=== PATIENT | female | born 1960 | race Two or more races ===

== ENCOUNTER 2021-12-31 16:40 | Observation (INO) | payer SELFPAY ==
[2021-12-31 16:46] VITALS: BP 187/109; PULSE 96; RESP 19; TEMP 36.8; O2SAT 93; BMI 26.5
--- NOTE | 2021-12-31 16:50 | CTR_ITS ---
PROCEDURE INFORMATION: Exam: CT Head Without Contrast Exam date and time: 12/31/2021 5:29 PM Age: 61 years old Clinical indication: Altered mental status/memory loss and speech disturbance; Dysphasia; Additional info: Difficu; Ty speaking elevated BP TECHNIQUE: Imaging protocol: Computed tomography of the head without contrast. Radiation optimization: All CT scans at this facility use at least one of these dose optimization techniques: automated exposure control; mA and/or kV adjustment per patient size (includes targeted exams where dose is matched to clinical indication); or iterative reconstruction. COMPARISON: No relevant prior studies available. 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 Mild atrophy and mild white matter chronic microvascular changes are noted. No hemorrhage or evidence of acute infarction. Cerebral ventricles: No ventriculomegaly. Paranasal sinuses: Visualized sinuses are unremarkable. No fluid levels. Mastoid air cells: Visualized mastoid air cells are well aerated. Bones/joints: Unremarkable. No acute fracture. Soft tissues: Unremarkable. CT/CT head wo con* [id number] IMPRESSION: No acute intracranial abnormality.
--- NOTE | 2021-12-31 16:50 | ECG_ITS ---
[facility] Test Date: 2021-12-31 Pat Name: Shannon Lara Department: Room: Gender: Female Personnel Technician: : 1960 Requested By: Colby Silveira Order Number: [id number] Ivan MD: Kortney Hunter M.D. Measurements Intervals [place] Rate: 94 P: 90 LA: 186 QRS: 38 QRSD: 85 T: 7 QT: 347 QTc: 435 Interpretive Statements SINUS RHYTHM ST DEVIATION AND MODERATE T-WAVE ABNORMALITY, CONSIDER INFERIOR ISCHEMIA [-0.1+ mV T-WAVE IN II/aVF] No previous ECG available for comparison Electronically Signed On 12-31-2021 18:56:58 CDT by Kortney Hunter M.D. [id number]
--- NOTE | 2021-12-31 16:50 | W.ED.GENADLT ---
Documented by User: Colby Ornelas DO 01/01/22 07:24 HPI - General Adult General: Chief complaint: Neuro Symptoms/Deficit Stated complaint: problem speaking, dizziness Time Seen by Provider: 12/31/21 16:45 Source: patient Mode of arrival: ambulatory Limitations: no limitations History of Present Illness: 61-year-old female presents emergency room stating she feels like she is dizzy and her speech is different. Patient is hypertensive. She is extremely anxious. She denies chest pain or abdominal pain denies dysuria urgency or frequency. No chest pain. Patient's blood pressure has been elevated at home and is remained slightly elevated here. She denies abdominal pain. No vision changes no hearing changes no difficulty with gait or balance. Beyond this patient is not able to really vocalize specific complaint other than she just does not feel right. Onset (ago): day(s) Severity: mild Associated symptoms: Reports malaise; Deny chest pain, confusion, cough, diaphoresis, decreased appetite, dyspnea, fevers/chills, headache(s), nausea, rash, palpitations, seizures, short of breath, syncope, vomiting or weakness Treatments prior to arrival: none Review of Systems Const: Reports: malaise; Denies: fever(s), chills, body aches, change in appetite or diaphoresis Eyes: Denies: change in vision or blurry vision ENMT: Denies: throat pain, ear or mastoid pain, nasal discharge or nasal congestion Card: Denies: chest pain, palpitations or syncope Resp: Denies: dyspnea GI: Reports: abdominal pain; Denies: nausea or vomiting : Denies: flank pain, difficulty voiding, dysuria, urinary frequency or urinary urgency Musc: Denies: neck pain or back pain Skin/Breast: Denies: rash Neuro: Denies: headache(s), numbness in extremities, weakness in extremities, sensory changes, difficulty walking, frequent falls, dizziness, confusion or seizure-like activity Psych: Reports: anxiety Endo: Denies: polyuria or polydipsia Lei/Lymph: Denies: easy bruising or easy bleeding [facility] PFSH: Medical History Breast cancer CHF (congestive heart failure) Reduced ejection fraction concurrent with and due to acute heart failure Surgical History Hx of mastectomy Family History Other Cancer Social History Smoking and tobacco status: current every day smoker cigarettes Packs smoked per day: 1 Number of cigarettes per day: >20 Alcohol intake: current Alcohol intake frequency: 3 or more drinks per day Alcohol type: beer Household members: family Physical Exam Const: COMMON NORMALS: no acute distress GENERAL APPEARANCE: cooperative and comfortable ORIENTATION/CONSCIOUSNESS: Yes awake, Yes oriented to person, Yes oriented to place and Yes oriented to time HENMT: COMMON NORMALS: normocephalic, atraumatic, hearing grossly normal bilaterally, external ears normal, EAC's normal and TM's normal bilaterally HEAD & SCALP: normocephalic and atraumatic EXTERNAL EAR: Yes external ears normal EXTERNAL AUDITORY CANAL: EAC's normal TYMPANIC MEMBRANE: TM's normal bilaterally Eye: COMMON NORMALS: Equal, round and reactive pupils present, EOMs intact bilaterally, conjunctivae normal and no scleral icterus CONJUNCTIVA: Yes conjunctivae normal PUPIL: Yes Equal, round and reactive pupils present Neck/C-Spine: COMMON NORMALS: full ROM, no lymphadenopathy, supple and no JVD Resp: COMMON NORMALS: normal respiratory effort, No retractions, No use of accessory muscles and clear to auscultation bilaterally AUSCULTATION: clear to auscultation bilaterally Cardio: COMMON NORMALS: no JVD, regular rate, regular rhythm and No murmurs present (Cardio) RATE: regular rate RHYTHM: regular rhythm GI: COMMON NORMALS: Soft to palpation and No hepatosplenomegaly present AUSCULTATION: Yes normoactive bowel sounds PALPATION: Yes Soft to palpation, No Tenderness to palpation present (GI), No Guarding due to palpation present (GI) and Yes No hepatosplenomegaly present Extremity: COMMON NORMALS: normal to inspection, capillary refill normal, no clubbing, cyanosis or edema, no calf tenderness and no pedal edema Neuro: SENSORIUM/ORIENTATION: Yes oriented to person, Yes oriented to place and Yes oriented to time Skin: COMMON NORMALS: no rashes or lesions noted GENERAL SKIN EXAM: no rashes or lesions noted Course Vital Signs: Vital signs: Vital Signs Temperature 97.5 F L 01/01/22 03:02 Pulse Rate 72 01/01/22 03:02 Respiratory Rate 16 01/01/22 03:02 Blood Pressure 158/85 01/01/22 03:02 Pulse Oximetry 92 01/01/22 03:02 MDM - General Adult Medical Decision Making NIH score is 0. Labs are pending. Care signed out to Dr. Engel at change of shift. See final notes for diagnosis and disposition. Patient presents here with some confusion and weakness and dizziness has been going on for over a day CT showed no signs of stroke here she has been slightly lethargic this could be anxiety related as well as she had a lot of anxiety with a recent family and is here on a will admit for observation at this time. Lab Data : 01/01/22 01:45 01/01/22 01:[address] 12/31/21 16:50 IMPRESSION: No acute intracranial abnormality. Chest X-Ray 12/31/21 19:57 IMPRESSION: 1. No acute findings. 2. 2 right upper lobe adjacent pulmonary nodules measuring up to 8.5 mm. Dedicated nonemergent chest CT advised for further evaluation Laboratory Results WBC 6.2 10^3/uL (4.0-10.0) 12/31/21 17:05 RBC 4.35 10^6/uL (4.1-5.3) 12/31/21 17:05 Hgb 14.6 g/dL (11.5-15.3) 12/31/21 17:05 Hct 44.1 % (37.0-47.0) 12/31/21 17:05 MCV 101.4 fl (81-99) H 12/31/21 17:05 MCH 33.6 pg (28.0-34.0) 12/31/21 17:05 MCHC 33.1 g/dL (30.0-36.0) 12/31/21 17:05 RDW 14.3 % (12.1-15.1) 12/31/21 17:05 Plt Count 228 10^3/cmm (130-400) 12/31/21 17:05 MPV 8.5 fL (7.4-10.4) 12/31/21 17:05 Neut % (Auto) 68.7 % 12/31/21 17:05 Lymph % (Auto) 22.2 % 12/31/21 17:05 [place] % (Auto) 7.3 % 12/31/21 17:05 Eos % (Auto) 1.0 % 12/31/21 17:05 Baso % (Auto) 0.5 % 12/31/21 17:05 Neut # (Auto) 4.25 10^3/uL (1.8-7.7) 12/31/21 17:05 Lymph # (Auto) 1.4 10^3/uL (0.8-4.8) 12/31/21 17:05 [place] # (Auto) 0.5 10^3/uL (0.2-0.9) 12/31/21 17:05 Eos # (Auto) 0.1 10^3/uL (0.0-0.8) 12/31/21 17:05 Baso # (Auto) 0.0 10^3/uL (0.0-0.1) 12/31/21 17:05 Nucleated RBC % (auto) 0 % 12/31/21 17:05 Nucleated RBCs # 0.0 /100WBC 12/31/21 17:05 Sodium 141 mmol/L (136-145) 12/31/21 17:05 Potassium 3.4 mmol/L (3.5-5.1) L 12/31/21 17:05 Chloride 103 mmol/L (98-107) 12/31/21 17:05 Carbon Dioxide 25 mmol/L (22-29) 12/31/21 17:05 Anion Gap 16.4 (5-19) 12/31/21 17:05 BUN 11 mg/dL (6-20) 12/31/21 17:05 Creatinine 0.7 mg/dL (0.5-0.9) 12/31/21 17:05 GFR Calculation 85.6 mL/min (90-130) L 12/31/21 17:05 Glucose 137 mg/dL (65-115) H 12/31/21 17:05 Estimat Average Glucose 126 12/31/21 17:05 Hemoglobin A1c 6.0 % (4.0-6.0) 12/31/21 17:05 Calculated Osmolality 294 mOsm/kg (285-295) 12/31/21 17:05 Calcium 9.5 mg/dL (8.5-10.5) 12/31/21 17:05 Troponin T Baseline 7 ng/L (0-10) 12/31/21 17:05 Troponin T 120 Minute 8.70 ng/L (0-10) 12/31/21 19:54 Delta Troponin T 1.70 ABS# (0-10) 12/31/21 19:54 Triglycerides 93 mg/dL (0-150) 12/31/21 19:54 Cholesterol 166 mg/dL (0-200) 12/31/21 19:54 LDL Cholesterol, Calc 69 mg/dL (50-129) 12/31/21 19:54 HDL Cholesterol 78 mg/dL (60-100) 12/31/21 19:54 LDL/HDL Ratio 0.88 RATIO (0.00-3.22) 12/31/21 19:54 Cholesterol/HDL Ratio 2.13 mg/dL (0.0-4.40) 12/31/21 19:54 TSH 0.81 uIU/mL (0.27-4.20) 12/31/21 19:54 Ethyl Alcohol < 10 mg/dL (0-10) 12/31/21 19:54 Discharge Plan Discharge Admit Provider: Juhi Almeida Condition: Stable Coding Level of Care Code ED Security Developer for g Fwd Exam Comprehensive NIH stroke score NIHSS Level Of Consciousness - 1a: 0 Level Of Consciousness Questions - 1b: Both Correct Level Of Consciousness Commands - 1c: Both Correct Best Gaze - 2: Normal Visual Lee - 3: No Visual Loss Facial Palsy - 4: Normal Motor Arm Right - 5: No Drift Motor Arm Left - 5: No Drift Motor Leg Right - 6: No Drift Motor Leg Left - 6: No Drift Limb Ataxia - 7: Absent Sensory - 8: Normal Best Language - 9: No Aphasia Dysarthia - 10: Normal Extinction And Inattention - 11: 0 Score Total Score: 0 Documented by User: Gomez Engel MD 12/31/21 21:39 HPI - General Adult General: Chief complaint: Neuro Symptoms/Deficit Stated complaint: problem speaking, dizziness Time Seen by Provider: 12/31/21 16:45 History of Present Illness: Associated symptoms: Deny chest pain, dyspnea, headache(s), nausea, rash or vomiting Review of Systems Const: Denies: fever(s), chills, body aches or change in appetite Eyes: Denies: blurry vision or eye discomfort ENMT: Denies: throat pain or dental pain Card: Denies: chest pain Resp: Denies: dyspnea GI: Denies: abdominal pain, nausea, vomiting or diarrhea : Denies: dysuria Musc: Denies: neck pain or back pain Skin/Breast: Denies: rash Neuro: Denies: headache(s) Psych: Denies: depression Lei/Lymph: Denies: easy bruising All/Imm: Denies: urticaria PFSH ED PFSH: Medical History Breast cancer CHF (congestive heart failure) Reduced ejection fraction concurrent with and due to acute heart failure Surgical History Hx of mastectomy Family History Other Cancer Social History Smoking and tobacco status: current every day smoker cigarettes Packs smoked per day: 1 Number of cigarettes per day: >20 Alcohol intake: current Alcohol intake frequency: 3 or more drinks per day Alcohol type: beer Household members: family Physical Exam Const: COMMON NORMALS: no acute distress, patient oriented x3 and healthy appearing HENMT: COMMON NORMALS: normocephalic and atraumatic HEAD & SCALP: normocephalic and atraumatic Eye: COMMON NORMALS: Equal, round and reactive pupils present and EOMs intact bilaterally PUPIL: Yes Equal, round and reactive pupils present Neck/C-Spine: COMMON NORMALS: full ROM and supple Chest: COMMONS NORMALS: normal inspection of the chest and normal palpation of entire chest wall Resp: COMMON NORMALS: normal respiratory effort, No retractions, No use of accessory muscles and clear to auscultation bilaterally AUSCULTATION: clear to auscultation bilaterally Cardio: COMMON NORMALS: regular rate, regular rhythm and No murmurs present (Cardio) RATE: regular rate RHYTHM: regular rhythm GI: COMMON NORMALS: Normal to inspection, nondistended, normoactive bowel sounds present, Soft to palpation, non-tender and no masses PALPATION: Yes Soft to palpation Extremity: COMMON NORMALS: normal to inspection and full ROM Neuro: COMMON NORMALS: patient oriented x3, moves all extremities and no focal motor deficits Psych: COMMON NORMALS: mental status grossly normal, Normal thought process present and cooperative THOUGHT PROCESS: Normal thought process present Skin: COMMON NORMALS: no rashes or lesions noted and no wounds GENERAL SKIN EXAM: no rashes or lesions noted Course Vital Signs: Vital signs: Vital Signs Temperature 97.5 F L 01/01/22 03:02 Pulse Rate 72 01/01/22 03:02 Respiratory Rate 16 01/01/22 03:02 Blood Pressure 158/85 01/01/22 03:02 Pulse Oximetry 92 01/01/22 03:02 [facility] - General Adult Medical Decision Making Patient presents here with some confusion and weakness and dizziness has been going on for over a day CT showed no signs of stroke here she has been slightly lethargic this could be anxiety related as well as she had a lot of anxiety with a recent family and is here on a will admit for observation at this time. Lab Data : 01/01/22 01:45 01/01/22 01:[address] 12/31/21 16:50 IMPRESSION: No acute intracranial abnormality. Chest X-Ray 12/31/21 19:57 IMPRESSION: 1. No acute findings. 2. 2 right upper lobe adjacent pulmonary nodules measuring up to 8.[address] mm[address] Ded[address] nonemergent chest CT advised for further evaluation Laboratory Results WBC 6.2 10^3/uL (4.0-10.0) 12/31/21 17:05 RBC 4.35 10^6/uL (4.1-5.3) 12/31/21 17:05 Hgb 14.6 g/dL (11.5-15.3) 12/31/21 17:05 Hct 44.1 % (37.0-47.0) 12/31/21 17:05 MCV 101.4 fl (81-99) H 12/31/21 17:05 MCH 33.6 pg (28.0-34.0) 12/31/21 17:05 MCHC 33.1 g/dL (30.0-36.0) 12/31/21 17:05 RDW 14.3 % (12.1-15.1) 12/31/21 17:05 Plt Count 228 10^3/cmm (130-400) 12/31/21 17:05 MPV 8.5 fL (7.4-10.4) 12/31/21 17:05 Neut % (Auto) 68.7 % 12/31/21 17:05 Lymph % (Auto) 22.2 % 12/31/21 17:05 [place] % (Auto) 7.3 % 12/31/21 17:05 Eos % (Auto) 1.0 % 12/31/21 17:05 Baso % (Auto) 0.5 % 12/31/21 17:05 Neut # (Auto) 4.25 10^3/uL (1.8-7.7) 12/31/21 17:05 Lymph # (Auto) 1.4 10^3/uL (0.8-4.8) 12/31/21 17:05 [place] # (Auto) 0.5 10^3/uL (0.2-0.9) 12/31/21 17:05 Eos # (Auto) 0.1 10^3/uL (0.0-0.8) 12/31/21 17:05 Baso # (Auto) 0.0 10^3/uL (0.0-0.1) 12/31/21 17:05 Nucleated RBC % (auto) 0 % 12/31/21 17:05 Nucleated RBCs # 0.0 /100WBC 12/31/21 17:05 Sodium 141 mmol/L (136-145) 12/31/21 17:05 Potassium 3.4 mmol/L (3.5-5.1) L 12/31/21 17:05 Chloride 103 mmol/L (98-107) 12/31/21 17:05 Carbon Dioxide 25 mmol/L (22-29) 12/31/21 17:05 Anion Gap 16.4 (5-19) 12/31/21 17:05 BUN 11 mg/dL (6-20) 12/31/21 17:05 Creatinine 0.7 mg/dL (0.5-0.9) 12/31/21 17:05 GFR Calculation 85.6 mL/min (90-130) L 12/31/21 17:05 Glucose 137 mg/dL (65-115) H 12/31/21 17:05 Estimat Average Glucose 126 12/31/21 17:05 Hemoglobin A1c 6.0 % (4.0-6.0) 12/31/21 17:05 Calculated Osmolality 294 mOsm/kg (285-295) 12/31/21 17:05 Calcium 9.5 mg/dL (8.5-10.5) 12/31/21 17:05 Troponin T Baseline 7 ng/L (0-10) 12/31/21 17:05 Troponin T 120 Minute 8.70 ng/L (0-10) 12/31/21 19:54 Delta Troponin T 1.70 ABS# (0-10) 12/31/21 19:54 Triglycerides 93 mg/dL (0-150) 12/31/21 19:54 Cholesterol 166 mg/dL (0-200) 12/31/21 19:54 LDL Cholesterol, Calc 69 mg/dL (50-129) 12/31/21 19:54 HDL Cholesterol 78 mg/dL (60-100) 12/31/21 19:54 LDL/HDL Ratio 0.88 RATIO (0.00-3.22) 12/31/21 19:54 Cholesterol/HDL Ratio 2.13 mg/dL (0.0-4.40) 12/31/21 19:54 TSH 0.81 uIU/mL (0.27-4.20) 12/31/21 19:54 Ethyl Alcohol < 10 mg/dL (0-10) 12/31/21 19:54 Discharge Plan Discharge Admit Provider: Juhi Almeida Condition: Stable Coding Level of Care Code ED Security Developer for [employer] Fwd Exam Comprehensive NIH stroke score Score Total Score: 0
[2021-12-31 17:06] VITALS: BP 188/115; PULSE 88; RESP 20
[2021-12-31 17:09] LABS: Basophils % 0.5 %; Eosinophils # 0.1 10^3/uL (0.0-0.8); Hematocrit 44.1 % (37.0-47.0); Hemoglobin 14.6 g/dL (11.5-15.3); Lymphocytes # 1.4 10^3/uL (0.8-4.8); Lymphocytes % 22.2 %; Mean Corpuscular HGB Conc 33.1 g/dL (30.0-36.0); Mean Corpuscular Hemoglobin 33.6 pg (28.0-34.0); Mean Corpuscular Volume 101.4 fl (81-99); Mean Platelet Volume 8.5 fL (7.4-10.4); Monocytes # 0.5 10^3/uL (0.2-0.9); Monocytes % 7.3 %; Neutrophils # 4.25 10^3/uL (1.8-7.7); Neutrophils % 68.7 %; Nucleated Red Blood Cells % 0 %; Platelet Count 228 10^3/cmm (130-400); Red Blood Count 4.35 10^6/uL (4.1-5.3); Red Cell Distribution Width 14.3 % (12.1-15.1); White Blood Count 6.2 10^3/uL (4.0-10.0)
[2021-12-31 17:29] LABS: Anion Gap 16.4 (5-19); Blood Urea Nitrogen 11 mg/dL (6-20); Calcium 9.5 mg/dL (8.5-10.5); Carbon Dioxide 25 mmol/L (22-29); Chloride 103 mmol/L (98-107); Glomerular Filtration Rate 85.6 mL/min (90-130); Glucose 137 mg/dL (65-115); Osmolality Calculated 294 mOsm/kg (285-295); Potassium 3.4 mmol/L (3.5-5.1); Sodium 141 mmol/L (136-145)
--- NOTE | 2021-12-31 17:38 | PC.PHAR ---
pt and pts son verified pts medications-pts son states normally the pt takes care of her own medications-pts son states he doesnt think the pt has an allergies-pt states she thinks she does-called pts pharmacy [facility] in [place] [phone] they state they have nka-notes are made in the pharmacy comments
[2021-12-31 18:19] VITALS: BP 124/87; PULSE 87; RESP 16; O2SAT 93
[2021-12-31 18:21] VITALS: BP 141/98; PULSE 89; RESP 16; O2SAT 90
[2021-12-31 18:47] LABS: Troponin(5th) Baseline 7 ng/L (0-10)
--- NOTE | 2021-12-31 19:57 | XRR_ITS ---
PROCEDURE INFORMATION: Exam: XR Chest Exam date and time: 12/31/2021 8:06 PM Age: 61 years old Clinical indication: Chest wall pain; Additional info: Cp TECHNIQUE: Imaging protocol: XR of the chest. Views: 1 view. COMPARISON: No relevant prior studies available. FINDINGS: Lungs: 2 right upper lobe adjacent pulmonary nodules measuring up to 8.5 mm. Pleural spaces: Unremarkable. No pleural effusion. No pneumothorax. Heart/Mediastinum: Unremarkable. No cardiomegaly. Bones/joints: Unremarkable. XR/XR chest 1V portable [id number] IMPRESSION: 1. No acute findings. 2. 2 right upper lobe adjacent pulmonary nodules measuring up to 8.[address] mm[address] Ded[address]ent chest CT advised for further evaluation
--- NOTE | 2021-12-31 19:58 | PM.HP ---
Providers/Chief Complaint Chief Complaint: problem speaking, dizziness History of Present Illness Shannon Kang is a 61 year old female who has moved from [place] a week ago to attend a , she does carry history of anxiety/depression, reduced ejection fraction heart failure, breast cancer, status postmastectomy, presented to the hospital for dizziness and confusion. Son is at the bedside who is stating that for last 2 to 3 days she has been emotionally very labile, today she experienced dry heaves without any vomiting, no chest pain, loss of consciousness, family noticed slurred speech as well around 11 AM, when she became drowsy her son took her to the clinic who recommended evaluation in the ER. By the time she finished work-up in the ER she woke up, her NIH score at the time of my evaluation was 0, CT scan unremarkable hypokalemia noted, son endorsed that she smokes more than a pack a day, drinks more than 2 cans of beer on daily basis Patient was adamant that she wanted to go home and was crying in front of her son, she is verbally redirectable No active signs of withdrawal, she looks dehydrated no signs of heart failure No active signs of neurological deficits Hyperventilating Chest x-ray showed pulmonary nodules 8.5 mm She does carry history of breast cancer Son is stating that she has reduced ejection fraction EF 35% however not able to provide me any further details whether it was ischemic or nonischemic, chemotherapy related Patient is not able to provide enough details as well Review of Systems General: Reports: ROS unobtainable due to medical condition (Emotionally labile, hyperventilating) Medications/Allergies Home Medications Medication Instructions Recorded Confirmed Last Taken Type acetaminophen 300 mg-codeine 30 mg 1 tab PO TID PRN 12/31/21 12/31/21 Unknown History tablet albuterol sulfate 90 mcg/actuation 2 - 3 puff INHALATION TID PRN 12/31/21 12/31/21 Unknown History aerosol inhaler amlodipine 10 mg tablet 10 mg PO DAILY 12/31/21 12/31/21 Unknown History budesonide-formoterol HFA 160 2 puff INHALATION BID 12/31/21 12/31/21 Unknown History mcg-4.5 mcg/actuation aerosol inhaler bupropion HCl 300 mg 24 hr tablet, 300 mg PO DAILY 12/31/21 12/31/21 Unknown History extended release carvedilol 3.125 mg tablet 3.125 mg PO BID 12/31/21 12/31/21 Unknown History clonazepam 1 mg tablet 1 mg PO BID 12/31/21 12/31/21 Unknown History cyclobenzaprine 10 mg tablet 10 mg PO Q12H PRN 12/31/21 12/31/21 Unknown History eszopiclone 3 mg tablet 3 mg PO BEDTIME 12/31/21 12/31/21 Unknown History gabapentin 600 mg tablet 600 mg PO TID 12/31/21 12/31/21 Unknown History pantoprazole 40 mg tablet,delayed 40 mg PO DAILY 12/31/21 12/31/21 Unknown History release potassium chloride 20 mEq 20 meq PO DAILY PRN 12/31/21 12/31/21 Unknown History tablet,extended release(part/cryst) quetiapine 50 mg tablet 50 mg PO BEDTIME 12/31/21 12/31/21 Unknown History Allergies Allergy/AdvReac Type Severity Reaction Status Date / Time Unable to Assess Allergy Verified 12/31/21 17:40 PFSH Acute PFSH: Medical History Breast cancer CHF (congestive heart failure) Reduced ejection fraction concurrent with and due to acute heart failure Surgical History Hx of mastectomy Family History Other Cancer Social History Smoking and tobacco status: current every day smoker cigarettes Packs smoked per day: 1 Number of cigarettes per day: >20 Alcohol intake: current Alcohol intake frequency: 3 or more drinks per day Alcohol type: beer Household members: family Vitals/I&O/Wt Last Vital Signs Temp 98.2 F 12/31/21 16:46 Pulse 89 12/31/21 18:21 Resp 16 12/31/21 18:21 BP 141/98 12/31/21 18:21 Pulse Ox 90 12/31/21 18:21 Weight last 48 hrs Weight 65.771 kg Physical Exam Narrative: Middle-age female Extremely dehydrated Lean appearance Dry cracked lips Dehydrated Son at the bedside NIH 0 Nonfocal neuro exam She is able to answer my questions appropriately Verbally redirectable Pupils are symmetrical Abdomen soft No signs of edema Saturating well on room air No audible stridor or wheezing Data : 12/31/21 17:05 12/31/21 17:05 A&P Assessment and plan (1) TIA (transient ischemic attack): Status: Acute (2) Functional neurological symptom disorder (conversion disorder), with abnormal movement: Status: Acute (3) Hypokalemia: Status: Acute (4) Dehydration: Status: Acute Plan TIA versus neuro conversion disorder Emotionally very labile Hyperventilating Hypokalemia NIH score is 0 [address] scan head unremarkable, will request carotid Dopplers Chest x-ray showed 2 right-sided pulmonary nodule 8.5 mm He does carry history of breast cancer, status postmastectomy We will request carotid Doppler Serial troponin and EKG CT chest in the morning once she is emotionally stable I would continue her antipsychotic quetiapine at bedtime Requested hepatitis panel, TSH, ammonia level Hemoglobin A1c 6 Patient is adamant that she wants to leave however she is verbally directable and willing to stay for the work-up overnight We will admit her as observation for her dehydration, TIA work-up Regular diet DVT prophylaxis on board Full code Patient is from [place], reduced ejection fraction heart failure without acute exacerbation, etiology of cardiomyopathy unknown, please call her [place] PCP clinic to get further details in the morning Attestations Medical Necessity Statement*: Anticipating discharge within 48 hours will need TIA work-up Time Spent in Patient Care: 40mins Coding Level of Care Code Acute Cloth Napping Supervisor for Chg Fwd Diagnoses TIA (transient ischemic attack) G45.9 Functional neurological symptom disorder (conversion disorder), with abnormal movement F44.4 Hypokalemia E87.6 Dehydration E86.0
[2021-12-31] MEDS: LORazepam 2 mg/mL INJ 1 mL 1 MG IVP (20:26)
[2021-12-31 20:42] LABS: Estmated Average Glucose 126
[2021-12-31 21:18] VITALS: BP 135/81; PULSE 85; RESP 16; O2SAT 94
[2021-12-31 21:21] VITALS: BP 135/81; PULSE 85; RESP 16; O2SAT 94
[2021-12-31 21:25] LABS: Ammonia 23 umol/L (11-51)
[2021-12-31 21:27] LABS: Add Urine Microscopic? YES; Bilirubin Urine Neg (Negative); Blood Urine Neg (Negative); Glucose Urine UA Norm (Normal); Ketones Urine Negative (Negative); Leukocyte Esterase Urine Negative (Negative); Nitrate Urine Positive (Negative); Protein Urine Neg (Negative); Specific Gravity, Urine 1.005 (1.005-1.030); Urine Appearance Clear (CLEAR); Urine Color Straw (Yellow); Urobilinogen Urine Norm (Negative); pH Urine 7 (5-7)
[2021-12-31 21:29] LABS: Add Urine Culture? No; Bacteria Urine 4+ /hpf; RBC Urine 0-4 /hpf (0-2); Squamous Epithelial Cell Urine 15-25 /hpf (0-5)
[2021-12-31 21:44] LABS: Hepatitis B Surface AB 211.7 (11.5-1000); Hepatitis B Surface Antigen Non-Reactive (Nonreactive); Hepatitis C Virus Antibody Non-Reactive (Nonreactive)
[2021-12-31 21:54] LABS: Hepatitis B Core AB, Total Reactive (Nonreactive)
--- NOTE | 2021-12-31 22:05 | USCV_ITS ---
Shannon Kang Age: 61 Gender: F : 1960 Exam Date: 12/31/2021 22:55 Ordering Phys: Juhi Almeida MD Technologist: CKKarel [place] [facility] [place]: TIA Risk Factors: Unknown Previous Vascular Surgery: Unknown Right Brachial BP: / Left Brachial BP: / Right Left Velocity (cm/s) Spectral Plaque Velocity (cm/s) Spectral Plaque Syst/Diast Broadening Syst/Diast Broadening / Prox CCA 39.50 / 8.50 / Distal CCA 44.90 / 2.10 FINDINGS Patent left proximal common carotid artery Mid CCA could not be visualized The distal common carotid artery possibly patent Could not visualize the ICA CONCLUSIONS Technically very limited study because of the patient's poor cooperation. Not visualized the left ICA or the mid CCA Consider CT angiogram to better evaluate the extracranial arteries Dr Kortney Hunter MD FAC (Electronically Signed) Final Date: 01 January 2022 20:24 S
[2021-12-31 22:08] VITALS: BMI 26.9
[2021-12-31 22:12] LABS: Amphetamines Screen Urine Negative (Negative); Barbiturates Screen Urine Negative (Negative); Benzodiazepines Screen Urine Negative (Negative); Cocaine Screen Urine Negative (Negative); Opiate Screen Urine Negative (Negative); PCP Screen Urine Negative (Negative); THC Screen Urine Negative (Negative)
[2021-12-31] MEDS: enoxaparin 40 mg/0.4 mL Syringe SUBCUT (22:43)
[2021-12-31] MEDS: sodium chloride 0.9% 1,000 ML 75 ML IV (22:43)
[2021-12-31 23:43] LABS: Chol HDL Ratio 2.13 mg/dL (0.0-4.40); Cholesterol 166 mg/dL (0-200); HDL Cholesterol 78 mg/dL (60-100); LDL Cholesterol Calculated 69 mg/dL (50-129); LDL HDL Ratio 0.88 RATIO (0.00-3.22); Thyroid Stimulating Hormone 0.81 uIU/mL (0.27-4.20); Triglycerides 93 mg/dL (0-150)
[2021-12-31 23:52] LABS: Alcohol Level < 10 mg/dL (0-10)
[2022-01-01] VITALS (7 sets, daily range): BP systolic 132–175; BP diastolic 77–91; PULSE 65–87; RESP 12–19; TEMP 36.4; O2SAT 90–96
[2022-01-01 02:17] LABS: Basophils % 0.4 %; Eosinophils # 0.1 10^3/uL (0.0-0.8); Eosinophils % 1.8 %; Hematocrit 43.6 % (37.0-47.0); Hemoglobin 14.5 g/dL (11.5-15.3); Lymphocytes # 2.1 10^3/uL (0.8-4.8); Lymphocytes % 39.2 %; Mean Corpuscular HGB Conc 33.3 g/dL (30.0-36.0); Mean Corpuscular Volume 99.3 fl (81-99); Mean Platelet Volume 8.9 fL (7.4-10.4); Monocytes # 0.4 10^3/uL (0.2-0.9); Monocytes % 7.1 %; Neutrophils % 51.3 %; Nucleated Red Blood Cells % 0 %; Platelet Count 252 10^3/cmm (130-400); Red Blood Count 4.39 10^6/uL (4.1-5.3); Red Cell Distribution Width 14.4 % (12.1-15.1); White Blood Count 5.5 10^3/uL (4.0-10.0)
[2022-01-01 02:38] LABS: Anion Gap 16.4 (5-19); Blood Urea Nitrogen 9 mg/dL (6-20); Calcium 9.6 mg/dL (8.5-10.5); Carbon Dioxide 24 mmol/L (22-29); Chloride 106 mmol/L (98-107); Glomerular Filtration Rate 102.3 mL/min (90-130); Glucose 106 mg/dL (65-115); Osmolality Calculated 295 mOsm/kg (285-295); Potassium 3.4 mmol/L (3.5-5.1); Sodium 143 mmol/L (136-145)
--- NOTE | 2022-01-01 08:00 | CT_ITS ---
WS: [id number] CT CHEST TECHNIQUE: Noncontrast CT of the chest with coronal and sagittal reformatted images. CLINICAL INFORMATION: Pulmonary nodule COMPARISON: None. DLP: 503.[address] scans at [facility] use at least one of these dose optimization techniques: automated e xposure control; mA and/or kV adjustment per patient size (includes targeted exams where dose is matc hed to clinical indication); or iterative reconstruction. FINDINGS: Moderate chronic emphysematous changes. No acute parenchymal infiltrates. No focal pneumonia or pleur al fluid. Slight RIGHT basilar atelectasis. Pulmonary nodule in the RIGHT upper lobe anteriorly corre sponding to the radiograph findings measuring 9 mm. Additional RIGHT upper lobe nodule measuring 6 mm with a small focus of calcification. Additional noncalcified nodule in the LEFT upper lobe measuring 4 mm. Aortic calcification. Normal ca liber thoracic aorta. Coronary calcification. No axillary lymphadenopathy. Adrenal glands are normal. Diffuse fatty infiltration liver. Hepatomegaly. Normal GE junction. Chroni c LEFT posterior rib fractures with callus formation. Mild thoracic kyphosis. Mild spondylitic change s thoracic spine. 10 mm spiculated lesion 12:00 subareolar LEFT breast. Recommend diagnostic mammography and ultrasound in further evaluation. Surgical clips deep to the spiculated lesion. CT/CT chest wo con [id number] IMPRESSION: 1. 2 RIGHT upper lobe nodules measuring 9 mm and 6 mm. The smaller lesion has a single focus of calcification. These are indeterminate and recommend [address] follow-up. 2. 4 mm LEFT upper lobe noncalcified pulmonary nodule. 3. 10 mm spiculated lesion 12:00 subareolar LEFT breast. Recommend diagnostic mammography and ultrasound in further evaluation. 4. Hepatomegaly with diffuse fatty infiltration.
[2022-01-01] MEDS: ipratropium-albuterol 3 mL Neb INHALATION (08:35)
[2022-01-01] MEDS: carvedilol 3.125 mg Tablet PO (10:11)
[2022-01-01] MEDS: CLONazepam 1 mg Tablet PO (10:11)
[2022-01-01] MEDS: atorvastatin 40 mg Tablet 80 MG PO (10:12)
[2022-01-01] MEDS: gabapentin 300 mg Capsule 600 MG PO (10:12)
[2022-01-01] MEDS: amlodipine 10 mg Tablet PO (10:12)
[2022-01-01] MEDS: pantoprazole DR 40 mg Tablet PO (10:13)
[2022-01-01] MEDS: aspirin 81 mg EC Tablet PO (10:13)
[2022-01-01] MEDS: buPROPion XL (24 HR) 300 mg Tablet PO (10:23)
[2022-01-01] MEDS: ondansetron 2 mg/ML SDV 2 mL 4 MG IVP (11:13)
--- NOTE | 2022-01-01 11:50 | MR_ITS ---
WS: [id number] MRI BRAIN WITHOUT CONTRAST HISTORY: Possible stroke. COMPARISON: CT head 12/31/2021 TECHNIQUE: Diffusion imaging, multiplanar T1, T2 and FLAIR imaging obtained. Diffusion-weighted images are normal. No hemorrhage. There are moderate T2 and FLAIR signal hyperinte nsities within the white matter. Several of these hyperintensities are perpendicular to the corpus ca llosum. Some the white matter lesions in a subcortical location while others may be juxtacortical. No signal abnormality within the chioma. Small perivascular space or lacunar infarct in the inferior LEFT temporal lobe. Mild atrophy. Ventricles and extra-axial spaces are normal. No inferior displacement of cerebellar tonsils. The sella turcica and pituitary gland are unremarkabl e. Dural venous sinuses and [place] demonstrate no abnormality on this unenhanced studies. Paranasal sinuses: Mild mucoperiosteal thickening in the maxillary and ethmoid air cells. No air-flui d levels. Mastoid air cells: Small amount of fluid in the mastoid air cells bilaterally. Calvarium and scalp: Intact. MR/MR head wo con* [id number] IMPRESSION: 1. No acute infarct or hemorrhage. 2. Intermediate number of T2 and FLAIR signal hyperintensities. Some of the si gnal hyperintensities in a distribution which may be related to demyelination. Other signal hyperintensities related to [id number] small vessel ischemic disease.
--- NOTE | 2022-01-01 12:10 | USCV_ITS ---
Shannon Kang Age: 61 Gender: F : 1960 Exam Date: 01/01/2022 13:58 Ordering Phys: Cole Peoples MD Technologist: ADOLFO Exam Location: [facility] [place] Indication: Hx ischemic cardiomyopathy BP: / HR: 90 Rhythm: Sinus Technical Quality: Adequate MEASUREMENTS (Male / Female) Normal Values 2D ECHO LV Diastolic Diameter PLAX 4.3 cm 4.2 - 5.9 / 3.9 - 5.3 cm LV Systolic Diameter PLAX 2.4 cm IVS Diastolic Thickness 0.9 cm 0.6 - 1.0 / 0.6 - 0.9 cm IVS Systolic Thickness 1.3 cm LVPW Diastolic Thickness 1.1 cm 0.6 - 1.0 / 0.6 - 0.9 cm LVPW Systolic Thickness 1.1 cm LVOT Diameter 1.9 cm LV Ejection Fraction 2D Teich 75.2 % LV Ejection Fraction MOD 2C 62.1 % LV Ejection Fraction 2C AL 63.1 % LA Diameter 3.3 cm LA Width 3.3 cm LA Height 4.7 cm RA Width 1.9 cm RA Height 3.9 cm Aorta at Sinotubular Diameter 2.4 cm M-MODE Aortic Annulus Diameter 2.4 cm LA Ao Ratio MM 1.3 MV E Point Septal Separation 0.4 cm DOPPLER AV Peak Velocity 153.0 cm/s LVOT Peak Velocity 84.0 cm/s AV Area Cont Eq vti 1.7 cm squared AV Area Cont Eq pk 1.6 cm squared MV Peak Velocity 161.0 cm/s MV Area PHT 2.7 cm squared Mitral E to A Ratio 1.0 MV E' Velocity 55.0 cm/s Mitral E to MV E' Ratio 11.4 Mitral E to LV E' Lateral Ratio 12.4 Mitral E to LV E' Septal Ratio 10.6 TR Peak Velocity 165.0 cm/s TR Peak Gradient 10.9 mmHg TV Peak E Velocity 44.0 cm/s PV Peak Velocity 98.0 cm/s FINDINGS Left Ventricle Normal left ventricular size, systolic function and wall thickness, with no regional wall motion abnormalities. Left ventricular ejection fraction is estimated at 70 %. Normal diastolic function. Right Ventricle Normal right ventricular size and systolic function. RVSP could not be calculated due to incomplete tricuspid regurgitation velocity profile. Right Atrium Normal right atrial size. Right atrial pressure estimated at 3 mm Hg. Left Atrium Normal left atrial size. Mitral Valve Structurally normal mitral valve. No mitral valve stenosis. Trace mitral valve regurgitation. Aortic Valve Structurally normal trileaflet aortic valve. No aortic valve stenosis. Trace to mild aortic valve regurgitation. Tricuspid Valve Structurally normal tricuspid valve. No tricuspid valve stenosis. Trace tricuspid valve regurgitation. Pulmonic Valve Structurally normal pulmonic valve. No pulmonary valve stenosis. Trace pulmonary valve regurgitation. Pericardium No pericardial effusion. Aorta Normal size aortic root and proximal ascending aorta. CONCLUSIONS 1. Normal left ventricular size, systolic function and wall thickness, with no regional wall motion abnormalities. Left ventricular ejection fraction is estimated at 70 %. Normal diastolic function. 2. Normal right ventricular size and systolic function. 3. Trace to mild aortic valve regurgitation. 4. No prior similar studies to compare. Nano Hernandez MD (Electronically Signed) Final Date: 01 January 2022 16:53 S
--- NOTE | 2022-01-01 12:13 | PC.CHAP ---
Pastoral Care Encounter/Spiritual Assessment Type of Contact [] Declined class 1 owner operator visit [] Patient/Family/Request visit [] Outpatient visit [] Follow-up visit [] Physician referral [] Code/Alert [xz] Routine visit [] Staff referral [] Actively dying [] Patient sleeping [] Family support [] [] Out of room [] Palliative care [] [] Receiving care in room [] Pre-surgical visit [] Trauma [] Long length of stay [] ICU visit [] Other: Relational/Emotional Strength [] Patient feels connected with others/family/visitors/staff [] Distress [] Loneliness/isolation [] Abandonment Spirituality of Patient [x] Person of Kezia [] Attends Judaism of their Kezia [x] Believes in Prayer [] Reads Bible or Lutheran materials [] There are Spiritual issues to be addressed Residential Sales Associate Interventions x[] Prayer [x] Active listening [] Non-anxious presence [] Spiritual/emotional support [] Crisis/trauma care [] Spiritual counseling [] Bereavement support [] Provided bereavement packet [] Provided Bible/devotional materials [] Provided toy/stuffed animal, coloring book to patient or family member [] Provided Communion [] Anointing/[place] [] Salvation [x] Completed spiritual assessment [] Other: Impact on Illness or Injury [] Angry [] Fearful [] Anxious [] Often cries [] Exhaustion [] Unable to work [] Unable to attend zoroastrianism [] Unable to walk/stand [] Unable to read [] Unable to drive [] Unable to eat/drink [] Unable to sleep [] Unable to be with family [] Patient intubated [] Other: Summary Time spent with patient 10 min
--- NOTE | 2022-01-01 13:28 | P.DS_ITS ---
Discharge Providers Date of Admission: 12/31/21 20:00 Date of Discharge: January 01, 2022 Attending Provider at Admission: Juhi Almeida MD Attending Provider at Discharge: Cole Peoples MD Diagnoses at Discharge Discharge Diagnosis (1) TIA (transient ischemic attack): Status: Acute (2) Functional neurological symptom disorder (conversion disorder), with abnormal movement: Status: Acute (3) Hypokalemia: Status: Acute (4) Dehydration: Status: Acute Reason for Visit Reason for Visit: problem speaking, dizziness Brief History: History as HPI: Shannon Kang is a 61 year old female who has moved from [place] a week ago to attend a , she does carry history of anxiety/depression, reduced ejection fraction heart failure, breast cancer, status postmastectomy, presented to the hospital for dizziness and confusion.? Son is at the bedside who is stating that for last 2 to 3 days she has been emotionally very labile, today she experienced dry heaves without any vomiting, no chest pain, loss of consciousness, family noticed slurred speech as well around 11 AM, when she became drowsy her son took her to the clinic who recommended evaluation in the ER. By the time she finished work-up in the ER she woke up, her NIH score at the time of my evaluation was 0, CT scan unremarkable hypokalemia noted, son endorsed that she smokes more than a pack a day, drinks more than 2 cans of beer on daily basis Patient was adamant that she wanted to go home and was crying in front of her son, she is verbally redirectable No active signs of withdrawal, she looks dehydrated no signs of heart failure Hospital Course Hospital Course Patient was admitted to the hospital for further evaluation and management. There was concern for TIA versus neuro conversion disorder. Patient worked well with physical therapy. Did not have any further complaints during hospitalization. On my examination next morning patient was awake and alert, a lot more emotional viable without having any emotional outbursts. Patient's son was present at bedside. Due to concerns for possible nodule on the chest x-ray CT chest was done which confirmed the presence of nodule with advised to follow-up for repeat CT scan 3 months. She was also found to have spiculated mass in the breast for which she was advised to have her mammogram and ultrasound-guided FNA. Both were discussed in detail with the patient and they were agreeable and will follow up as an outpatient with their primary care provider regarding the same. Prior to discharge MRI, echocardiogram and carotid Dopplers were done which were all pending. Patient is due to travel to [place] within next 24 hours. She is advised to follow-up with her primary care provider within next few days. She is advised to request documentation from hospital regarding the current state to be faxed over to her primary care's office. She is advised to take aspirin 81 mg daily. Both patient and son and patient were agreeable and understood the directions in detail. All the questions were answered. Physical Exam Narrative: Middle-age female Lean appearance Dry cracked lips Son at the bedside NIH 0 Nonfocal neuro exam She is able to answer my questions appropriately Verbally redirectable, not emotionally labile anymore Pupils are symmetrical Abdomen soft No signs of edema Saturating well on room air No audible stridor or wheezing Discharge Data Studies Completed and Pending Completed Studies During Hospitalization Category Date Time Status CT chest wo con [id number] Routine Cat Scan 01/01/22 08:[address] head wo con* [id number] Stat Cat Scan 12/31/21 16:50 Completed CXRP [XR chest 1V portable [id number]] Stat Exams 12/31/21 19:57 Completed Pending at discharge Category Date Time Status Miscellaneous Test Routine Lab 12/31/21 20:33 Received Miscellaneous Test Routine Lab 12/31/21 20:33 Received MR head wo con* [id number] Stat MRI 01/01/22 11:50 Ordered CV carotid duplex BI* [id number] Routine Ultrasound 12/31/21 22:05 Taken CV. echo complete* [id number] Routine Ultrasound 01/01/22 12:10 Ordered Radiology Impressions Head CT 12/31/21 16:50 IMPRESSION: No acute intracranial abnormality. Chest X-Ray 12/31/21 19:57 IMPRESSION: 1. No acute findings. 2. 2 right upper lobe adjacent pulmonary nodules measuring up to 8.5 mm. Dedicated nonemergent chest CT advised for further evaluation Chest CT 01/01/22 08:00 IMPRESSION: 1. 2 RIGHT upper lobe nodules measuring 9 mm and 6 mm. The smaller lesion has a single focus of calcification. These are indeterminate and recommend [address] follow-up. 2. 4 mm LEFT upper lobe noncalcified pulmonary nodule. 3. 10 mm spiculated lesion 12:00 subareolar LEFT breast. Recommend diagnostic mammography and ultrasound in further evaluation. 4. Hepatomegaly with diffuse fatty infiltration. Laboratory Results WBC 5.5 10^3/uL (4.0-10.0) 01/01/22 01:45 RBC 4.39 10^6/uL (4.1-5.3) 01/01/22 01:45 Hgb 14.5 g/dL (11.5-15.3) 01/01/22 01:45 Hct 43.6 % (37.0-47.0) 01/01/22 01:45 MCV 99.3 fl (81-99) H 01/01/22 01:45 MCH 33.0 pg (28.0-34.0) 01/01/22 01:45 MCHC 33.3 g/dL (30.0-36.0) 01/01/22 01:45 RDW 14.4 % (12.1-15.1) 01/01/22 01:45 Plt Count 252 10^3/cmm (130-400) 01/01/22 01:45 MPV 8.9 fL (7.4-10.4) 01/01/22 01:45 Neut % (Auto) 51.3 % 01/01/22 01:45 Lymph % (Auto) 39.2 % 01/01/22 01:45 Arthur % (Auto) 7.1 % 01/01/22 01:45 Eos % (Auto) 1.8 % 01/01/22 01:45 Baso % (Auto) 0.4 % 01/01/22 01:45 Neut # (Auto) 2.80 10^3/uL (1.8-7.7) 01/01/22 01:45 Lymph # (Auto) 2.1 10^3/uL (0.8-4.8) 01/01/22 01:45 Arthur # (Auto) 0.4 10^3/uL (0.2-0.9) 01/01/22 01:45 Eos # (Auto) 0.1 10^3/uL (0.0-0.8) 01/01/22 01:45 Baso # (Auto) 0.0 10^3/uL (0.0-0.1) 01/01/22 01:45 Nucleated RBC % (auto) 0 % 01/01/22 01:45 Nucleated RBCs # 0.0 /100WBC 01/01/22 01:45 Sodium 143 mmol/L (136-145) 01/01/22 01:45 Potassium 3.4 mmol/L (3.5-5.1) L 01/01/22 01:45 Chloride 106 mmol/L (98-107) 01/01/22 01:45 Carbon Dioxide 24 mmol/L (22-29) 01/01/22 01:45 Anion Gap 16.4 (5-19) 01/01/22 01:45 BUN 9 mg/dL (6-20) 01/01/22 01:45 Creatinine 0.6 mg/dL (0.5-0.9) 01/01/22 01:45 GFR Calculation 102.3 mL/min (90-130) 01/01/22 01:45 Glucose 106 mg/dL (65-115) 01/01/22 01:45 Estimat Average Glucose 126 12/31/21 17:05 Hemoglobin A1c 6.0 % (4.0-6.0) 12/31/21 17:05 Calculated Osmolality 295 mOsm/kg (285-295) 01/01/22 01:45 Calcium 9.6 mg/dL (8.5-10.5) 01/01/22 01:45 Ammonia 23 umol/L (11-51) 12/31/21 20:33 Troponin T Baseline 7 ng/L (0-10) 12/31/21 17:05 Troponin T 120 Minute 8.70 ng/L (0-10) 12/31/21 19:54 Delta Troponin T 1.70 ABS# (0-10) 12/31/21 19:54 Triglycerides 93 mg/dL (0-150) 12/31/21 19:54 Cholesterol 166 mg/dL (0-200) 12/31/21 19:54 LDL Cholesterol, Calc 69 mg/dL (50-129) 12/31/21 19:54 HDL Cholesterol 78 mg/dL (60-100) 12/31/21 19:54 LDL/HDL Ratio 0.88 RATIO (0.00-3.22) 12/31/21 19:54 Cholesterol/HDL Ratio 2.13 mg/dL (0.0-4.40) 12/31/21 19:54 TSH 0.81 uIU/mL (0.27-4.20) 12/31/21 19:54 Urine Color Straw (Yellow) 12/31/21 20:46 Urine Appearance Clear (CLEAR) 12/31/21 20:46 Urine pH 7 (5-7) 12/31/21 20:46 Ur Specific [place] 1.005 (1.005-1.030) 12/31/21 20:46 Urine Protein Neg (Negative) 12/31/21 20:46 Urine Glucose (UA) Norm (Normal) 12/31/21 20:46 Urine Ketones Negative (Negative) 12/31/21 20:46 Urine Blood Neg (Negative) 12/31/21 20:46 Urine Nitrate Positive (Negative) H 12/31/21 20:46 Urine Bilirubin Neg (Negative) 12/31/21 20:46 Urine Urobilinogen Norm mg/dL (Negative) 12/31/21 20:46 Ur Leukocyte Esterase Negative (Negative) 12/31/21 20:46 Urine RBC 0-4 /hpf (0-2) H 12/31/21 20:46 Urine WBC 5-10 /hpf (0-5) H 12/31/21 20:46 Ur Squamous Epith Cells 15-25 /hpf (0-5) H 12/31/21 20:46 Amorphous Sediment Not Reportable 12/31/21 20:46 Urine Bacteria 4+ /hpf (NONE) H 12/31/21 20:46 Urine Opiates Screen Negative ng/mL (Negative) 12/31/21 20:46 Ur Barbiturates Screen Negative ng/mL (Negative) 12/31/21 20:46 Ur Phencyclidine Scrn Negative ng/mL (Negative) 12/31/21 20:46 Ur Amphetamines Screen Negative ng/mL (Negative) 12/31/21 20:46 U Benzodiazepines Scrn Negative ng/mL (Negative) 12/31/21 20:46 Urine Cocaine Screen Negative ng/mL (Negative) 12/31/21 20:46 U Marijuana (THC) Screen Negative ng/mL (Negative) 12/31/21 20:46 Ethyl Alcohol < 10 mg/dL (0-10) 12/31/21 19:54 Hepatitis A IgM Ab TNP 12/31/21 20:33 Hep Bs Antigen Non-reactive (Nonreactive) 04/19/22 20:33 Hep Bs Antibody 211.7 (11.5-1000) 12/31/21 20:33 Hep B Core Total Ab Reactive (Nonreactive) H 12/31/21 20:33 Hepatitis C Antibody Non-reactive (Nonreactive) 12/31/21 20:33 Vitals Last Vital Signs Temp 97.5 F L 01/01/22 03:02 Pulse 87 01/01/22 12:00 Resp 12 01/01/22 12:00 BP 175/91 01/01/22 12:00 Pulse Ox 90 01/01/22 12:00 Discharge Plan Discharge Patient Disposition: Home Condition: Stable Prescriptions: New aspirin 81 mg Tablet,Delayed Release (Dr/Ec) 81 mg PO DAILY Qty: 30 0RF alprazolam 0.5 mg Tablet 0.5 mg PO TID PRN (Reason: Anxiety) Qty: 10 0RF Continued gabapentin 600 mg tablet 600 mg PO TID 0RF clonazepam 1 mg tablet 1 mg PO BID 0RF carvedilol 3.125 mg tablet 3.125 mg PO BID 0RF amlodipine 10 mg tablet 10 mg PO DAILY 0RF pantoprazole 40 mg tablet,delayed release (DR/EC) 40 mg PO DAILY 0RF eszopiclone 3 mg tablet 3 mg PO BEDTIME 0RF budesonide-formoterol 160-4.5 mcg/actuation HFA aerosol inhaler 2 puff INHALATION BID 0RF cyclobenzaprine 10 mg tablet 10 mg PO Q12H PRN (Reason: Muscle Spasm) 0RF acetaminophen-codeine 300-30 mg tablet 1 tab PO TID PRN (Reason: Pain) 0RF potassium chloride 20 mEq tablet,ER particles/crystals 20 meq PO DAILY PRN (Reason: unknown) 0RF albuterol sulfate 90 mcg/actuation HFA aerosol inhaler 2 - 3 puff INHALATION TID PRN (Reason: Shortness Of Breath) 0RF bupropion HCl 300 mg tablet extended release 24 hr 300 mg PO DAILY 0RF quetiapine 50 mg tablet 50 mg PO BEDTIME 0RF Discharge Orders: Discharge Order (Routine); Ordered 01/01/22 Ordered By: Cole Peoples Discharge Diet: Usual diet Discharge Activity: Resume usual activity and Increase activity as tolerated Patient Instructions: Opioid Safety Activity Restrictions/Additional Instructions: Please continue take your medications as before. Please follow-up with a primary care provider within next 1 week. Discussed in detail he should have a repeat CT scan of the chest in 3 months to evaluate for nodule. Please schedule her mammogram with her primary care provider for further evaluation of spiculated mass as seen on CT chest for further evaluation and possibly management. Discharge Attestations Time Spent in Discharge Care*: greater than 30 min Specific Discharge Activities: educating patient, educating and/or supporting family/caregiver, discussing with telephonic nurse case manager/social workers/dc planners, documenting/other paperwork and evaluating patient/reviewing data Status at Discharge: Cognitive status at discharge: cognitively intact , Behavioral status at discharge: cooperative , Functional status at discharge: independent ambulation , Overall status at discharge: patient is back to baseline Quality Metrics Clinical Quality Measures [ No reported AMI, CVA or VTE this stay] Coding Level of Care Code Acute [facility] DC note Diagnoses TIA (transient ischemic attack) G45.9 Functional neurological symptom disorder (conversion disorder), with abnormal movement F44.4 Hypokalemia E87.6 Dehydration E86.0
--- NOTE | 2022-01-01 15:53 | PC.NURSE ---
Discharge instructions reviewed with patient and family at bedside, all questions answered, spoke with physician at discharge to answer remaining questions. Verbally acknowledges discharge instructions and plan.
== END 2022-01-01 15:53 | disposition home or self-care (01) ==
LOC: ER 19:41 → MEDSURG 21:01
PROVIDERS: Family Medicine; Admitting Provider Internal Medicine; Emergency Provider Emergency Medicine; Visit Provider Student in an Organized Health Care Education/Training Program
DX: G45.9 Transient cerebral ischemic attack, unspecified (principal); F44.4 Conversion disorder with motor symptom or deficit; E87.6 Hypokalemia; E86.0 Dehydration; R29.700 NIHSS score 0; Z85.3 Personal history of malignant neoplasm of breast; Z90.10 Acquired absence of unspecified breast and nipple; F17.210 Nicotine dependence, cigarettes, uncomplicated
CPT/HCPCS: 36415; 70450; 70551; 71045; 71250; 80048; 80061; 80306; 80307; 81001; 82140; 83036; 84443; 84484; 85025; 86705; 86706; 86709; 86803; 87340; 93005; 93306; 93880; 94640; 96372; 96374; 96375; 97110; 97161; 99285; G0378; J1650; J2060; J2405; J7030

== ENCOUNTER → 2022-05-28 12:26 | Outpatient (BNVA) | payer BC, MEDICAID, SELFPAY | PROVIDERS: PCP Family Medicine Adult Medicine; Visit Provider Emergency Medicine | DX: R50.9 Fever, unspecified (principal); Z20.822 Contact with and (suspected) exposure to COVID-19 | CPT/HCPCS: 87426 ==